=== PATIENT | female | born 1970 | race Caucasian/White ===

== ENCOUNTER 2025-04-22 11:33 | Day surgery (SDC) | payer BC ==
[2025-04-15 12:10] LABS: MEAN PLATELET VOLUME 7.9 FL (7.4-10.4); PRE OP HEMATOCRIT 46.3 % (35.0-45.0); PRE OP HEMOGLOBIN 15.4 g/dL (12.0-16.0); PRE OP PLATELET COUNT 248 X10'3 (140-440); PRE OP WHITE BLOOD COUNT 7.1 10'3 (4.8-10.8); RED CELL DISTRIBUTION WIDTH 13.8 % (11.5-14.5)
--- NOTE | 2025-04-15 12:11 | ELECTROCARDIOGRAPH REPORT ---
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 MINH Carrera Measurements Intervals [place] Rate: 65 P: 52 UT: 154 QRS: 6 QRSD: 91 T: 29 QT: 422 QTc: 439 Interpretive Statements Sinus rhythm Electronically Signed On 04-15-2025 16:33:[address] MINH Carrera Please click the below link to view image of tracing.
[2025-04-15 12:28] LABS: CREATININE 0.67 MG/DL (0.40-0.90); PRE OP ALT 32 U/L (30-65); PRE OP ANION GAP 3 (8-16); PRE OP AST 24 U/L (10-37); PRE OP BILIRUB, TOTAL 0.6 MG/DL (0.0-1.0); PRE OP GLUCOSE 142 MG/DL (70-104); PRE OP POTASSIUM 4.4 MMOL/L (3.4-5.1); PRE OP SODIUM 140 MMOL/L (135-145); TOTAL CARBON DIOXIDE 32.4 MMOL/L (24-32); eGFR > 90 ML/MIN
[2025-04-22] VITALS (12 sets, daily range): BP systolic 109–143; BP diastolic 55–77; PULSE 58–82; RESP 13–18; TEMP 97.7; O2SAT 92–97
[~2025-04-22] VITALS: Ht 160 cm; Wt 89.1 kg
[2025-04-22] MEDS: ceFAZolin 2gm/dext,iso 50mL 50 ML IV ONE (05:30)
[~2025-04-22 11:33] MED LIST: ALBU8HFA PO; DOCUMENT DATE & TIME OF BETA-BLOCKER PO ONE; EMPA10TA PO; ESCI-8 PO; IBUP-2697 PO; INSU100V13 SQ; LEVO100T PO; METF-900 PO; METO-395 PO; MULT-1085 PO; ROSU10TA72 PO; SEMA2PEN SQ
[2025-04-22] MEDS: ringers solution, lacted 1,000 ML IV SCH (12:04)
[2025-04-22] MEDS ORDERED: BUPIVAcaine/PF 2.5mg/ml (0.25%) 10ml vial ONE (13:18)
[2025-04-22] MEDS ORDERED: acetaminophen 1,000mg/100ml IV 100 ML IV PRN (14:20)
[2025-04-22] MEDS ORDERED: HYDROmorphone/PF 0.2 MG/ML SYRINGE IV PRN ×2 (14:20)
[2025-04-22] MEDS ORDERED: ringers solution, lacted 1,000 ML IV SCH (14:20)
[2025-04-22] MEDS ORDERED: hydrALAZINE 20mg/ml inj. IV PRN (14:20)
[2025-04-22] MEDS ORDERED: labetalol 20mg/4ml (5mg/ml) syringe IV PRN (14:20)
[2025-04-22] MEDS ORDERED: ondansetron/PF 4mg/2ml inj IV PRN (14:20)
[2025-04-22] MEDS ORDERED: morphine 4 MG/ML inj SYRINge IV PRN (14:20)
[2025-04-22] MEDS ORDERED: fentaNYL/PF 50MCG/1 ML 2ML syringe ONE (14:30)
[2025-04-22] MEDS ORDERED: propofol inj 20 ML IV ONE (14:56)
[2025-04-22] MEDS ORDERED: ondansetron/PF 4mg/2ml inj ONE (14:56)
[2025-04-22] MEDS ORDERED: midazolam 1 mg/ML 2ml injection ONE (14:56)
[2025-04-22] MEDS ORDERED: LIDOcaine 2% (20mg/ml) 5ml vial ONE (14:56)
[2025-04-22] MEDS ORDERED: rocuronium 10mg/ml inj IV ONE (14:56)
[2025-04-22] MEDS ORDERED: dexamethasone sod phosphate 4mg/ml inj. ONE (14:56)
[2025-04-22] MEDS ORDERED: HYDROcodone/acetaminophen 5mg/325mg tablet PO PRN (15:20)
--- NOTE | 2025-04-22 18:08 | OPERATIVE REPORT ---
Operative Report Providers to CC: DAVID BUSTOS MD ~ Date of Procedure: Apr 22, 2025 Pre-Operative Diagnosis: Subcutaneous tumor of the gluteal cleft Post-Operative Diagnosis 1 cm subcutaneous tumor of the gluteal cleft Procedure Performed Excision of 1 cm subcutaneous tumor from the right gluteal cleft Surgeon: David Bustos MD FACS Manager Long Term Care None Anesthesiologist: Bisi Sánchez Type of Anesthesia: General Findings: Nodular, subcutaneous tumor with a depth of approximately three or 4 mm with gross margins obtained Wound Class I Complications None Prosthetics\Implants used: None Estimated Blood Loss: Minimal Specimen Removed: Gluteal cleft subcutaneous tumor Description of Procedure: Patient was brought to the operating room and identified by the nursing staff and the attending physician. Patient was placed supine and general anesthesia was induced. Patient was then placed in the prone position with all bony prominences padded and secured. Along the midportion of the gluteal cleft just to the right of midline, there was a 1 x 1 cm nodule. This had been previously biopsied as benign, however, patient had significant pain in the area when sitting. The gluteal cleft was prepped and draped in the standard sterile fashion. There was absolutely no evidence of pilonidal disease. Local anesthetic was infiltrated. An elliptical incision was made around the 1 x 1 cm lesion. This incision was deepened using electrocautery until clear deep margins were obtained. Once the areolar fat deep to the dermis and lesion was visualized, the lesion was removed completely with gross margins. This was passed off the field as subcutaneous tumor of the buttock. Wound was irrigated and hemostasis assured. Absorbable dermal stitches were used to reapproximate the wound edges and the skin was closed with interrupted 3-0 nylon sutures. Sterile dressing was applied. Patient was awakened and taken to the postanesthesia care unit in stable condition. Counts repoted as correct: Yes DAVID BUSTOS MD Apr 22, 2025 18:08
== END 2025-04-22 16:54 | disposition home or self-care (01) ==
LOC: PAS 11:33
PROVIDERS: ATTEND Surgery
DX: R22.2 Localized swelling, mass and lump, trunk (principal); D23.5 Other benign neoplasm of skin of trunk; L90.5 Scar conditions and fibrosis of skin; E11.9 Type 2 diabetes mellitus without complications; E78.5 Hyperlipidemia, unspecified; E03.9 Hypothyroidism, unspecified; J45.909 Unspecified asthma, uncomplicated; F41.9 Anxiety disorder, unspecified; F32.A Depression, unspecified; Z79.1 Long term (current) use of non-steroidal anti-inflammatories (NSAID); Z79.84 Long term (current) use of oral hypoglycemic drugs; Z79.890 Hormone replacement therapy; Z79.899 Other long term (current) drug therapy; Z90.710 Acquired absence of both cervix and uterus; Z98.890 Other specified postprocedural states; Z88.1 Allergy status to other antibiotic agents; Z88.7 Allergy status to serum and vaccine; Z91.030 Bee allergy status; Z91.018 Allergy to other foods; Z91.012 Allergy to eggs; Z88.8 Allergy status to other drugs, medicaments and biological substances; Z83.3 Family history of diabetes mellitus
CPT/HCPCS: 11401; 36415; 80053; 82948; 85025; 93005; J1100; J2003; J2250; J2405; J2704; J3010; J3490; J7030; J7120; Z7506; Z7512; A4215; A4618; A7000